=== PATIENT | female | born 1975 | race Caucasian/White ===

== ENCOUNTER 2017-11-09 16:20 | Emergency (ER) | payer BC ==
[2017-11-09] MEDS ORDERED: Ketorolac 60 MG/2 ML SDV IM ONE (16:36)
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
--- NOTE | 2017-11-10 10:05 | CR ---
No fracture or dislocation.
== END 2017-11-09 17:35 | disposition home or self-care (01) ==
LOC: JP.ED 16:20
DX: M25.561 Pain in right knee (principal)
CPT/HCPCS: 73562; 96372; 99284; J1885